=== PATIENT | female | born 1990 | race African-American/Black ===

== ENCOUNTER 2017-06-08 02:05 | Emergency (ER) | payer SELFPAY ==
[~2017-06-08] VITALS: Ht 167.6 cm; Wt 55.0 kg
[2017-06-08] MEDS ORDERED: ONDANSETRON HCL 4 MG/2 ML VIAL ONE (02:11)
--- NOTE | 2017-06-08 02:14 | PD ---
HPI Chief Complaint: intoxication Time Seen by Provider: 02:12 Travel History International Travel<30 days: No Contact w/Intl Traveler<30days: No Traveled to known affect area: No History of Present Illness HPI 26-year-old female presents to emergency department for evaluation of intoxication. Patient was dancing tonight at [employer]. She reportedly was drinking very heavily. She did several shots. Patient was found lying in the locker room floor when he was called. Patient responds to painful stimuli but is otherwise nonverbal at this time. Any other history is unable to be collected at this time. [facility] Past Medical History Medical History: Unable to Obtain Social History Alcohol Use: Yes Tobacco Use: Yes Allergies-Medications (Allergen,Severity, Reaction): Coded Allergies: No Allergy Information Available (Unverified , 06/08/17) Reported Meds & Prescriptions Reported Meds & Active Scripts Active Active Prescriptions or Reported Medications Unobtainable Review of Systems ROS Limitations: Intoxication Except as stated in HPI: all other systems reviewed are Neg Physical Exam Exam Limitations: Intoxication Narrative GENERAL: Well nourished female patient, lying in the bed, clinically intoxicated or under the influence of other substance, intermittent moaning and arousable to painful stimuli. SKIN: Focused skin assessment warm/dry. HEAD: Atraumatic. Normocephalic. EYES: Pupils equal and round. No scleral icterus. No injection or drainage. ENT: No nasal bleeding or discharge. Mucous membranes pink and moist. NECK: Trachea midline. No JVD. CARDIOVASCULAR: Regular rate and rhythm. No murmur appreciated. RESPIRATORY: No accessory muscle use. Clear to auscultation. Breath sounds equal bilaterally. GASTROINTESTINAL: Abdomen soft, non-tender, nondistended. Hepatic and splenic margins not palpable. MUSCULOSKELETAL: No obvious deformities. No clubbing. No cyanosis. No edema. NEUROLOGICAL Obtunded. I am unable to assess cranial nerves at this time. She moves all extremities. Data Data Last Documented VS Vital Signs Date Time Temp Pulse Resp B/P (MAP) Pulse Ox O2 Delivery O2 Flow Rate FiO2 06/08/17 03:27 73 16 120/80 (93) 99 Room Air 06/08/17 02:22 97.5 Orders Orders Iv Access Insert/Monitor (06/08/17 02:10) Complete Blood Count With Diff (06/08/17 02:10) Basic Metabolic Panel (Bmp) (06/08/17 02:10) Ed Urine Pregnancytest Poc (06/08/17 02:10) Oximetry (06/08/17 02:10) Ecg Monitoring (06/08/17 02:10) Oxygen Administration (06/08/17 02:10) Beta Hcg (Quant/Titer) (06/08/17 02:10) Drug Screen, Random Urine (06/08/17 02:10) Alcohol (Ethanol) (06/08/17 02:10) Salicylates (Aspirin) (06/08/17 02:10) Tylenol (Acetaminophen) (06/08/17 02:10) Ondansetron Inj (Zofran Inj) (06/08/17 02:15) Ondansetron Inj (Zofran Inj) (06/08/17 02:11) Sodium Chlor 0.9% 1000 Ml Inj (Ns 1000 M (06/08/17 03:15) Labs Laboratory Tests Test 06/08/17 02:05 06/08/17 02:10 Urine Opiates Screen NEG Urine Barbiturates Screen NEG Urine Amphetamines Screen NEG Urine Benzodiazepines Screen NEG Urine Cocaine Screen NEG Urine Cannabinoids Screen NEG White Blood Count 9.0 TH/MM3 Red Blood Count 4.51 MIL/MM3 Hemoglobin 12.7 GM/DL Hematocrit 38.4 % Mean Corpuscular Volume 85.1 FL Mean Corpuscular Hemoglobin 28.2 PG Mean Corpuscular Hemoglobin Concent 33.1 % Red Cell Distribution Width 14.9 % Platelet Count 391 TH/MM3 Mean Platelet Volume 7.8 FL Neutrophils (%) (Auto) 54.5 % Lymphocytes (%) (Auto) 36.1 % Monocytes (%) (Auto) 7.9 % Eosinophils (%) (Auto) 0.9 % Basophils (%) (Auto) 0.6 % Neutrophils # (Auto) 4.9 TH/MM3 Lymphocytes # (Auto) 3.3 TH/MM3 Monocytes # (Auto) 0.7 TH/MM3 Eosinophils # (Auto) 0.1 TH/MM3 Basophils # (Auto) 0.1 TH/MM3 CBC Comment DIFF FINAL Differential Comment Blood Urea Nitrogen 11 MG/DL Creatinine 0.81 MG/DL Random Glucose 110 MG/DL Calcium Level 8.6 MG/DL Sodium Level 142 MEQ/L Potassium Level 3.0 MEQ/L Chloride Level 108 MEQ/L Carbon Dioxide Level 25.7 MEQ/L Anion Gap 8 MEQ/L Estimat Glomerular Filtration Rate 86 ML/MIN Human Chorionic Gonadotropin, Quant LESS THAN 1 MIU/ML Salicylates Level LESS THAN 1.7 MG/DL Acetaminophen Level LESS THAN 2.0 MCG/ML Ethyl Alcohol Level 310 MG/DL MDM Medical Decision Making Medical Screen Exam Complete: Yes Emergency Medical Condition: Yes Medical Record Reviewed: Yes Differential Diagnosis Intoxication versus polysubstance abuse versus mood disorder versus personality disorder versus overdose versus electro-abnormality Narrative Course 26-year-old female presents to emergency department for evaluation. Patient is obtunded, arousable to painful stimuli. Pupils are equal and reactive. She is moving all extremities but not to command. She has no obvious trauma. Laboratory Tests Test 06/08/17 02:05 06/08/17 02:10 Urine Opiates Screen NEG Urine Barbiturates Screen NEG Urine Amphetamines Screen NEG Urine Benzodiazepines Screen NEG Urine Cocaine Screen NEG Urine Cannabinoids Screen NEG White Blood Count 9.0 TH/MM3 Red Blood Count 4.51 MIL/MM3 Hemoglobin 12.7 GM/DL Hematocrit 38.4 % Mean Corpuscular Volume 85.1 FL Mean Corpuscular Hemoglobin 28.2 PG Mean Corpuscular Hemoglobin Concent 33.1 % Red Cell Distribution Width 14.9 % Platelet Count 391 TH/MM3 Mean Platelet Volume 7.8 FL Neutrophils (%) (Auto) 54.5 % Lymphocytes (%) (Auto) 36.1 % Monocytes (%) (Auto) 7.9 % Eosinophils (%) (Auto) 0.9 % Basophils (%) (Auto) 0.6 % Neutrophils # (Auto) 4.9 TH/MM3 Lymphocytes # (Auto) 3.3 TH/MM3 Monocytes # (Auto) 0.7 TH/MM3 Eosinophils # (Auto) 0.1 TH/MM3 Basophils # (Auto) 0.1 TH/MM3 CBC Comment DIFF FINAL Differential Comment Blood Urea Nitrogen 11 MG/DL Creatinine 0.81 MG/DL Random Glucose 110 MG/DL Calcium Level 8.6 MG/DL Sodium Level 142 MEQ/L Potassium Level 3.0 MEQ/L Chloride Level 108 MEQ/L Carbon Dioxide Level 25.7 MEQ/L Anion Gap 8 MEQ/L Estimat Glomerular Filtration Rate 86 ML/MIN Human Chorionic Gonadotropin, Quant LESS THAN 1 MIU/ML Salicylates Level LESS THAN 1.7 MG/DL Acetaminophen Level LESS THAN 2.0 MCG/ML Ethyl Alcohol Level 310 MG/DL EtOH is 310. Patient will be monitored until she is clinically sober at which time she will be discharged home. Diagnosis Primary Impression: Alcohol intoxication Qualified Codes: F10.929 - Alcohol use, unspecified with intoxication, unspecified Referrals: [facility] (Out patient) Patient Instructions: Abuse of Alcohol (ED), General Instructions Additional Instructions: Consume alcohol in moderation Follow-up with primary care provider Return immediately with any acute worsening of symptoms Med/Other Pt SpecificInfo: No Change to Meds Scripts Unable to Obtain Active Prescriptions or Reported Meds Disposition: 01 DISCHARGE HOME Condition: Stable Belinda Galeana Jun 08, 2017 02:14
[2017-06-08] MEDS ORDERED: ONDANSETRON HCL 4 MG/2 ML VIAL IV PUSH ONE (02:15)
[2017-06-08 02:22] VITALS: BP 113/57; PULSE 72; RESP 16; TEMP 97.5; O2SAT 100
[2017-06-08 02:27] LABS: AUTOMATED NEUTROPHIL # 4.9 TH/MM3 (1.8-7.7); BASOPHIL # 0.1 TH/MM3 (0-0.2); BASOPHIL % 0.6 % (0.0-2.0); EOSINOPHIL # 0.1 TH/MM3 (0-0.4); EOSINOPHIL % 0.9 % (0.0-4.0); HEMATOCRIT 38.4 % (35.0-46.0); HEMOGLOBIN 12.7 GM/DL (11.6-15.3); LYMPH % 36.1 % (9.0-44.0); LYMPHOCYTE # 3.3 TH/MM3 (1.0-4.8); MEAN CELL VOLUME 85.1 FL (80.0-100.0); MEAN CORPUSCULAR HEMOGLOBIN 28.2 PG (27.0-34.0); MEAN CORPUSCULAR HGB CONC 33.1 % (32.0-36.0); MEAN PLATELET VOLUME 7.8 FL (7.0-11.0); MONO % 7.9 % (0.0-8.0); MONOCYTE # 0.7 TH/MM3 (0-0.9); NEUT % 54.5 % (16.0-70.0); PLATELET COUNT 391 TH/MM3 (150-450); RED BLOOD COUNT 4.51 MIL/MM3 (4.00-5.30); RED CELL DISTRIBUTION WIDTH 14.9 % (11.6-17.2)
[2017-06-08 02:54] LABS: ACETAMINOPHEN LESS THAN 2.0 MCG/ML (10.0-30.0); BICARBONATE 25.7 MEQ/L (21.0-32.0); BLOOD UREA NITROGEN 11 MG/DL (7-18); CALCIUM 8.6 MG/DL (8.5-10.1); CHLORIDE 108 MEQ/L (98-107); CREATININE 0.81 MG/DL (0.50-1.00); GLOMERULAR FILTRATION RATE 86 ML/MIN (>89); GLUCOSE,RANDOM 110 MG/DL (74-106); SODIUM (NA) 142 MEQ/L (136-145)
[2017-06-08] MEDS ORDERED: SODIUM CHLOR 0.9% 1000 ML INJ 1,000 ML IV ONE (03:15)
[2017-06-08 03:27] VITALS: BP 120/80; PULSE 73; RESP 16; O2SAT 99
[2017-06-08 04:34] VITALS: BP 111/82; PULSE 81; RESP 20; O2SAT 99
[2017-06-08 07:17] VITALS: BP 103/54; PULSE 79; RESP 18; O2SAT 99
--- NOTE | 2017-06-08 12:26 | PD ---
Data Data Last Documented VS Vital Signs Date Time Temp Pulse Resp B/P (MAP) Pulse Ox O2 Delivery O2 Flow Rate FiO2 06/08/17 07:17 79 18 103/54 (70) 99 Room Air 06/08/17 02:22 97.5 Orders Orders Iv Access Insert/Monitor (06/08/17 02:10) Complete Blood Count With Diff (06/08/17 02:10) Basic Metabolic Panel (Bmp) (06/08/17 02:10) Ed Urine Pregnancytest Poc (06/08/17 02:10) Oximetry (06/08/17 02:10) Ecg Monitoring (06/08/17 02:10) Oxygen Administration (06/08/17 02:10) Beta Hcg (Quant/Titer) (06/08/17 02:10) Drug Screen, Random Urine (06/08/17 02:10) Alcohol (Ethanol) (06/08/17 02:10) Salicylates (Aspirin) (06/08/17 02:10) Tylenol (Acetaminophen) (06/08/17 02:10) Ondansetron Inj (Zofran Inj) (06/08/17 02:15) Ondansetron Inj (Zofran Inj) (06/08/17 02:11) Sodium Chlor 0.9% 1000 Ml Inj (Ns 1000 M (06/08/17 03:15) Ed Discharge Order (06/08/17 12:25) Labs Laboratory Tests Test 06/08/17 02:05 06/08/17 02:10 Urine Opiates Screen NEG Urine Barbiturates Screen NEG Urine Amphetamines Screen NEG Urine Benzodiazepines Screen NEG Urine Cocaine Screen NEG Urine Cannabinoids Screen NEG White Blood Count 9.0 TH/MM3 Red Blood Count 4.51 MIL/MM3 Hemoglobin 12.7 GM/DL Hematocrit 38.4 % Mean Corpuscular Volume 85.1 FL Mean Corpuscular Hemoglobin 28.2 PG Mean Corpuscular Hemoglobin Concent 33.1 % Red Cell Distribution Width 14.9 % Platelet Count 391 TH/MM3 Mean Platelet Volume 7.8 FL Neutrophils (%) (Auto) 54.5 % Lymphocytes (%) (Auto) 36.1 % Monocytes (%) (Auto) 7.9 % Eosinophils (%) (Auto) 0.9 % Basophils (%) (Auto) 0.6 % Neutrophils # (Auto) 4.9 TH/MM3 Lymphocytes # (Auto) 3.3 TH/MM3 Monocytes # (Auto) 0.7 TH/MM3 Eosinophils # (Auto) 0.1 TH/MM3 Basophils # (Auto) 0.1 TH/MM3 CBC Comment DIFF FINAL Differential Comment Blood Urea Nitrogen 11 MG/DL Creatinine 0.81 MG/DL Random Glucose 110 MG/DL Calcium Level 8.6 MG/DL Sodium Level 142 MEQ/L Potassium Level 3.0 MEQ/L Chloride Level 108 MEQ/L Carbon Dioxide Level 25.7 MEQ/L Anion Gap 8 MEQ/L Estimat Glomerular Filtration Rate 86 ML/MIN Human Chorionic Gonadotropin, Quant LESS THAN 1 MIU/ML Salicylates Level LESS THAN 1.7 MG/DL Acetaminophen Level LESS THAN 2.0 MCG/ML Ethyl Alcohol Level 310 MG/DL MDM Supervised Visit with RICK: Yes Narrative Course The history, exam, and medical decision-making in the associated midlevel provider note were completed with my assistance. I reviewed and agree with the findings presented. I attest that I had a [id number] encounter with the patient on the same day, and personally performed and documented my assessment and findings in the medical record. *My assessment and Findings: This is a 26-year-old female who presents to the emergency department intoxicated. She was observed overnight. She currently is ambulatory, able to make her own decisions and appropriate for discharge. Diagnosis Primary Impression: Alcohol intoxication Qualified Codes: F10.929 - Alcohol use, unspecified with intoxication, unspecified Referrals: [facility] (Out patient) Patient Instructions: General Instructions, Abuse of Alcohol (ED) Additional Instruction: Consume alcohol in moderation Follow-up with primary care provider Return immediately with any acute worsening of symptoms Scripts Unable to Obtain Active Prescriptions or Reported Meds Disposition: 01 DISCHARGE HOME Condition: Stable Tari Kelley MD Jun 08, 2017 12:26
== END 2017-06-08 13:13 | disposition home or self-care (01) ==
LOC: NEPD 02:05
DX: F10.929 Alcohol use, unspecified with intoxication, unspecified (principal); Y90.8 Blood alcohol level of 240 mg/100 ml or more
CPT/HCPCS: 80048; 80307; 84702; 84703; 85025; 96374; 99284; J2405; J7030